=== PATIENT | male | born 1960 | race Caucasian/White ===

== ENCOUNTER 2019-01-01 22:18 | Emergency (ER) | payer OTHER ==
[~2019-01-01] VITALS: Ht 177.8 cm; Wt 74.8 kg
[2019-01-02 01:31] VITALS: BP 107/63
[2019-01-02] MEDS ORDERED: NORCO 5-325 TA1 EAC1 PO (01:39)
[2019-01-02] MEDS ORDERED: CLEOCIN HCL150 MG PO (01:39)
== END 2019-01-02 01:52 | disposition home or self-care (01) ==
LOC: ER 22:18
DX: S62.522A Displaced fracture of distal phalanx of left thumb, initial encounter for closed fracture (principal); W23.0XXA Caught, crushed, jammed, or pinched between moving objects, initial encounter; Y93.89 Activity, other specified; Y92.89 Other specified places as the place of occurrence of the external cause; Y99.8 Other external cause status